=== PATIENT | male | born 1995 | race Caucasian/White ===

== ENCOUNTER 2019-08-06 19:49 | Emergency (ER) | payer OTHER ==
[2019-08-06 20:03] VITALS: BP 151/92; PULSE 65; RESP 15; TEMP 98.6
[2019-08-06] MEDS ORDERED: AMOXIC-POT CLAV 875-125MG 1 EACH TAB PO STA (20:19)
--- NOTE | 2019-08-06 20:24 | ED ---
Animal Bite HPI - General Chief Complaint: Animal Bite Stated Complaint: Dog bite Time Seen by Provider: 08/06/19 20:06 Source: patient Mode of arrival: ambulatory Limitations: no limitations - History of Present Illness Initial Comments: Patient is 24-year-old male presenting to emergency Department with a chief complaint of elbow. Patient reports incident occurred yesterday when an unknown dog bit his right arm. Patient reports 2 small abrasions the right hand. Patient reports the Police was contacted and report was conducted. The dog's salesman/owner states the dog is vaccinated. Patient denies any pain, nausea or vomiting. Patient denies changes to the site of injury. Patient denies taking medication to alleviate the symptoms. Patient denies any illegal given factors. - Related Data Previous Rx's Medication Instructions Recorded Amoxicillin/Potassium Clav 1 tab PO Q12HR #20 tab 08/06/19 [Augmentin 875-125 Tablet] Allergies Allergy/AdvReac Type Severity Reaction Status Date / Time No Known Allergies Allergy Verified 08/06/19 20:03 Review of Systems ROS Statement: Those systems with pertinent positive or pertinent negative responses have been documented in the HPI. ROS Other: All systems not noted in ROS Statement are negative. Past Medical History Past Medical History: No Reported History History of Any Multi-Drug Resistant Organisms: None Reported Past Surgical History: No Surgical Hx Reported Past Psychological History: No Psychological Hx Reported Smoking Status: Never smoker Past Alcohol Use History: None Reported Past Drug Use History: None Reported General Exam Limitations: no limitations General appearance: alert, in no apparent distress Head exam: Present: atraumatic, normocephalic, normal inspection Eye exam: Present: normal appearance, PERRL, EOMI Pupils: Present: normal accommodation ENT exam: Present: normal exam, normal oropharynx, mucous membranes moist, TM's normal bilaterally, normal external ear exam Neck exam: Present: normal inspection, full ROM. Absent: tenderness Respiratory exam: Present: normal lung sounds bilaterally Cardiovascular Exam: Present: regular rate, normal rhythm, normal heart sounds Extremities exam: Present: full ROM, normal capillary refill, other (+2 ulnar radial pulses.). Absent: normal inspection (2 small abrasions on the palmar aspect of right hand) Back exam: Present: normal inspection, full ROM. Absent: CVA tenderness (R), CVA tenderness (L) Neurological exam: Present: alert, oriented X3 Psychiatric exam: Present: normal affect, normal mood Skin exam: Present: warm, intact, normal color Course Vital Signs 08/06/19 20:00 Temperature 98.6 F Pulse Rate 65 Respiratory 15 Rate Blood Pressure 151/92 O2 Sat by Pulse 99 Oximetry Medical Decision Making - Medical Decision Making Patient is 24-year-old male presenting to emergency department with chief complaint of a dog bite. Patient appears to have 2 small abrasions on the right arm. Patient reports his tetanus shot is up-to-date. Patient reports the dog's salesman/owner has a dog vaccinated. Patient advised to monitor dog for possible signs of rabies. Patient will be given a single dose of Augmentin here and discharged with a 10 day course of Augmentin. Patient advised to return to emergency department if symptoms worsen. Case discussed with physician. Disposition Clinical Impression: Bite by animal, Dog bite Disposition: HOME SELF-CARE Condition: Stable Instructions (If sedation given, give patient instructions): Animal Bite (ED) Additional Instructions: Please take prescribed medication as directed. Please follow with primary care. Please return to emergency department if symptoms worsen. Prescriptions: Amoxicillin/Potassium Clav [Augmentin 875-125 Tablet] 1 tab PO Q12HR #20 tab Is patient prescribed a controlled substance at d/c from ED?: No Referrals: None,Stated [Primary Care Provider] - 1-2 days Time of Disposition: 20:23
[2019-08-06] MEDS ORDERED: DIPH,PERTUS(ACELL)TETVAC-LF 0.5 ML VIAL IM ONE (20:40)
== END 2019-08-06 21:26 | disposition home or self-care (01) ==
LOC: EC 19:49
DX: S61.451A Open bite of right hand, initial encounter (principal); Z23 Encounter for immunization; W54.0XXA Bitten by dog, initial encounter; Y92.89 Other specified places as the place of occurrence of the external cause
CPT/HCPCS: 90471; 90715; 99283